=== PATIENT | male | born 1975 | race Caucasian/White ===

== ENCOUNTER 2020-03-05 02:45 | Emergency (ER) | payer BC ==
--- NOTE | 2020-03-05 03:30 | EDM.PDOC ---
ED HPI GENERAL MEDICAL PROBLEM - General Chief Complaint: ENT Problem Stated Complaint: EYE PROBLEM Time Seen by Provider: 03/05/20 03:16 Source of Information: Reports: Patient History Limitations: Reports: No Limitations - History of Present Illness INITIAL COMMENTS - FREE TEXT/NARRATIVE: TRIAGE NOTE -- Pt state was grinding on metal this afternoon about 1600 and noticed foreign body to R) eye. C/o worsening pain. pt denies vision problems. [ End ] Above. There is no additional contributory history at this point. No treatment prior to arrival. Patient is requesting anesthetic drops for eye. Right Eye Pain Score (Numeric/FACES): 8 - Related Data Allergies Allergy/AdvReac Type Severity Reaction Status Date / Time No Known Allergies Allergy Verified 03/05/20 02:55 Home Meds: Home Meds . [No Known Home Meds] 03/05/20 [History] Past Medical History Cardiovascular History: Reports: Hypertension Social & Family History - Tobacco Use Smoking Status *Q: Current Every Day Smoker Years of Tobacco use: 20 Packs/Tins Daily: 1 - Alcohol Use Days Per Week of Alcohol Use: 3 Number of Drinks Per Day: 3 Total Drinks Per Week: 9 - Recreational Drug Use Recreational Drug Use: No ED ROS ENT - Review of Systems Review Of Systems: Comprehensive ROS is negative, except as noted in HPI. ED EXAM, ENT - Physical Exam Exam: See Below Exam Limited By: No Limitations General Appearance: Alert, WD/WN, No Apparent Distress Eye Exam: Bilateral Eye: Conjunctival Injection, EOMI, PERRL Ears: Normal External Exam Nose: Normal Inspection Mouth/Throat: Normal Inspection Head: Atraumatic, Normocephalic Neck: Normal Inspection, Supple Respiratory/Chest: No Respiratory Distress, Lungs Clear Cardiovascular: Regular Rate, Rhythm GI/Abdominal: Soft, Non-Tender Extremities: Normal Inspection Neurological: Alert, Oriented, Normal Cognition, No Motor/Sensory Deficits Psychiatric: Normal Affect Skin: Warm, Dry Comments: [place] acuity, 20/20 both eyes. On fluorescein exam there is no corneal defect. No foreign body is identified. Course - Vital Signs Last Recorded V/S: Last Vital Signs Temp 36.2 C 03/05/20 02:55 Pulse 77 03/05/20 02:55 Resp 18 03/05/20 02:55 BP 153/102 H 03/05/20 02:55 Pulse Ox 97 03/05/20 02:55 - Orders/Labs/Meds Orders: Active Orders 24 hr Category Date Time Status Dexamethasone/Tobramycin [Tobradex Ophth Susp] Med 03/05/20 04:00 Ordered 2 ml EYERT Q4H Meds: Medications Discontinued Medications Generic Name Dose Route Start Last Admin Trade Name Joey PRN Reason Stop Dose Admin Fluorescein Sodium Confirm 03/05/20 03:47 Ful-Casie Administered 03/05/20 03:48 Dose 1 mg .ROUTE .STK-MED ONE Fluorescein Sodium 1 mg 03/05/20 03:56 Ful-Casie EYERT 03/05/20 03:57 ONETIME ONE - Re-Assessments/Exams Free Text/Narrative Re-Assessment/Exam: 03/05/20 04:04 The patient's right eye has been examined fully without any heath acute finding other than some generalized inflammatory changes of both eyes. No foreign body is identified. No corneal staining with fluorescein. Patient is still complaining of pain and it would be beneficial for him to see optometry or ophthalmology for a slit lamp exam. Discussed fully with patient and . Departure - Departure Time of Disposition: 04:07 Disposition: Home, Self-Care 01 Condition: Good Clinical Impression: Irritation of both eyes, Pain, eye, right Conjunctivitis Qualifiers: Conjunctivitis type: unspecified Laterality: bilateral Qualified Code(s): H10.9 - Unspecified conjunctivitis - Discharge Information *PRESCRIPTION DRUG MONITORING PROGRAM REVIEWED*: Not Applicable *COPY OF PRESCRIPTION DRUG MONITORING REPORT IN PATIENT KAR: Not Applicable Forms: ED Department Discharge Additional Instructions: You have been seen because of suspected foreign body in your right eye. Your eye has been examined the best it can be evaluated in the emergency department and no foreign body is noted. The cornea was stained with a special stain which helps us to detect any damage to the cornea which is the clear part of the eye. No deficit or defect is found on that exam. As you have pain in the eye and still a sensation of foreign body you are urged to see an eye doctor. There are manager compliance in town who can examine you with better equipment than we have in the emergency department. That needs to be done PRAVEEN. As there is possible infection or potential for infection as well as inflammation you have been given a combination antibiotic and steroid drops to use. It is noted that you are 20/20 in both eyes. If you have any problems getting access to an eye exam with an manager compliance or professor of biological sciences please return to the ER so we can assist with this. In light of the pain in the eye you also need additional evaluation that can be done by an eye doctor of any sort. Sepsis Event Note - Evaluation Sepsis Screening Result: No Definite Risk - Focused Exam Vital Signs: Vital Signs Temp Pulse Resp BP Pulse Ox 03/05/20 02:55 36.2 C 77 18 153/102 H 97 Date Exam was Performed: 03/05/20 Time Exam was Performed: 04:00 - My Orders Last 24 Hours: My Active Orders 03/05/20 04:00 Dexamethasone/Tobramycin [Tobradex Ophth Susp] 2 ml EYERT Q4H - Assessment/Plan Last 24 Hours: My Active Orders 03/05/20 04:00 Dexamethasone/Tobramycin [Tobradex Ophth Susp] 2 ml EYERT Q4H
[2020-03-05] MEDS ORDERED: Fluorescein 1 MG Ophth Strip ONE (03:47)
[2020-03-05] MEDS ORDERED: Fluorescein 1 MG Ophth Strip EYERT ONE (03:56)
[2020-03-05] MEDS ORDERED: Dexamethasone/Tobramycin 0.1-0.3% Ophth Susp 5 ML Bottle EYERT SCH (04:00)
== END 2020-03-05 04:21 | disposition home or self-care (01) ==
LOC: JD.ED 02:45
DX: H10.9 Unspecified conjunctivitis (principal); I10 Essential (primary) hypertension; F17.210 Nicotine dependence, cigarettes, uncomplicated
CPT/HCPCS: 99283; A9270

== ENCOUNTER 2020-10-25 17:04 | Emergency (ER) | payer BC ==
[2020-10-25] MEDS ORDERED: Lidocaine 1% 10 ML MDV INJECT ONE (17:54)
--- NOTE | 2020-10-25 18:15 | EDM.PDOC ---
ED HPI GENERAL MEDICAL PROBLEM - General Chief Complaint: ENT Problem Stated Complaint: NOSE INJURY Time Seen by Provider: 10/25/20 17:33 Source of Information: Reports: Patient, RN Notes Reviewed History Limitations: Reports: No Limitations - History of Present Illness INITIAL COMMENTS - FREE TEXT/NARRATIVE: Patient is a 44-year-old male who presents to the ED for the evaluation of his facial injury. The patient was seen by another provider at the [facility] for this injury, and they were concerned that there could be a deeper injury so they sent him to our ER for x-rays. Patient notes he was using a chisel with a hammer, when the chisel came back and struck him in the face. This resulted in a laceration to his right nare, that did actively start bleeding at that time. Patient had some numbness around the area initially, but notes that the numbness has gotten much better. He is not having any other facial tenderness at this point in time, he does not believe that he has any dental trauma. He did not lose consciousness, he has no blurred vision or double vision. Patient denies any other sick-like symptoms, fever/chills, cough/shortness of breath, [place]/vomiting/diarrhea. Nose Pain Score (Numeric/FACES): 2 - Related Data Allergies Allergy/AdvReac Type Severity Reaction Status Date / Time No Known Allergies Allergy Verified 10/25/20 17:17 Home Meds: Home Meds . [No Known Home Meds] 03/05/20 [History] Past Medical History Cardiovascular History: Reports: Hypertension - Infectious Disease History Infectious Disease History: Reports: None Social & Family History - Family History Family Medical History: No Pertinent Family History - Tobacco Use Tobacco Use Status *Q: Current Every Day Tobacco User Years of Tobacco use: 20 Packs/Tins Daily: 1 - Caffeine Use Caffeine Use: Reports: Soda - Recreational Drug Use Recreational Drug Use: No ED ROS ENT - Review of Systems Review Of Systems: Comprehensive ROS is negative, except as noted in HPI. ED EXAM, ENT - Physical Exam Exam: See Below Exam Limited By: No Limitations General Appearance: Alert, WD/WN, No Apparent Distress Nose: Normal Mucousa, Active Bleeding (At the site of the laceration), Dried Blood (At the site of the laceration). No: Nasal Discharge, Septal Perforation Mouth/Throat: Normal Inspection, Normal Gums, Normal Lips, Normal Oropharynx, Normal Teeth Head: Normocephalic, Facial Lacerations (Laceration noted at the right nare/nasal fold) Neck: Normal Inspection, Supple, Non-Tender, Full Range of Motion Respiratory/Chest: No Respiratory Distress, Lungs Clear, Normal Breath Sounds, No Accessory Muscle Use, Chest Non-Tender Cardiovascular: Normal Peripheral Pulses, Regular Rate, Rhythm, No Edema GI/Abdominal: Normal Bowel Sounds, Soft, Non-Tender, No Distention, No Mass Extremities: Normal Inspection, Normal Capillary Refill Neurological: Alert, Oriented, Normal Cognition, No Motor/Sensory Deficits Psychiatric: Normal Affect, Normal Mood Skin: Warm, Dry, Normal Color, No Rash, Wound/Incision (Laceration to the patient's right nare. There is quite a bit of blood in it is not been cleaned up at this time, hard to discern how large the laceration is at this time.) ED ENT PROCEDURES - Laceration/Wound Repair Right Lower Lateral Nose Lac/wound length in cm: 1 Appearance: Superficial, Linear, Clean Distal NVT: Neuro & Vascular Intact, No Tendon Injury Anesthetic Type: Local Local Anesthesia - Lidocaine (Xylocaine): 1% Plain Local Anesthetic Volume: 1cc Skin Prep: Chlorhexidine (Hibiciens), Saline Exploration/Debridement/Repair: Wound Explored, In a Bloodless Field, Explored to Base, No Foreign Material Found Suture Size: 4-0 # of Sutures: 3 Suture Type: Prolene, Interrupted, Simple Sterile Dressing Applied: Nurse Tetanus Status Addressed: Yes Complications: None Course - Vital Signs Last Recorded V/S: Last Vital Signs Temp 98.8 F 10/25/20 17:12 Pulse 87 10/25/20 17:12 Resp 18 10/25/20 17:12 BP 152/99 H 10/25/20 17:12 Pulse Ox 97 10/25/20 17:12 - Orders/Labs/Meds Orders: Active Orders 24 hr Category Date Time Status Vaccines to be Administered [RC] PER UNIT ROUTINE Care 10/25/20 18:20 Active Facial Bones Comp Min 3V [CR] Stat Exams 10/25/20 17:53 Taken Meds: Medications Discontinued Medications Generic Name Dose Route Start Last Admin Trade Name Freq PRN Reason Stop Dose Admin Diphtheria/Tetanus/Acell Pertussis 0.5 ml 10/25/20 18:20 10/25/20 18:56 Boostrix IM 10/25/20 18:21 0.5 ml .ONCE ONE Administration Lidocaine HCl 10 ml 10/25/20 17:54 10/25/20 18:58 Xylocaine 1% INJECT 10/25/20 17:55 10 ml ONETIME ONE Administration - Re-Assessments/Exams Free Text/Narrative Re-Assessment/Exam: 10/25/20 18:13 Patient presents to the ED for evaluation of his facial injury, we will get facial bone x-rays to determine if there is any sort of fracture and/or retained foreign body. Plan is to repair the patient's laceration with local anesthetic. 10/25/20 19:36 X-rays have been done, there are no signs of retained foreign body, or any sort of fracture apparent appreciated by Claudia parisi. Departure - Departure Time of Disposition: 19:32 Disposition: Home, Self-Care 01 Condition: Good Clinical Impression: Laceration of nose without foreign body Qualifiers: Encounter type: initial encounter Qualified Code(s): S01.21XA - Laceration without foreign body of nose, initial encounter - Discharge Information *PRESCRIPTION DRUG MONITORING PROGRAM REVIEWED*: No *COPY OF PRESCRIPTION DRUG MONITORING REPORT IN PATIENT KAR: No Instructions: Facial Laceration, [id number] Referrals: Prasanna Pérez MD [Primary Care Provider] - Forms: ED Department Discharge Additional Instructions: You have been evaluated in the ED for your laceration. Sutures will need to stay in for 5 to 7 days. X-rays demonstrated no foreign metal objects or fractures identified at today's visit. You may return to the ED or any clinic for removal. Please keep this area clean and dry, you may cleanse with regular soap and water. No vigorous scrubbing. Watch out for signs of infection like increased redness, swelling, pain at the laceration site, or if you should develop any fevers or chills. Please return to ED if your symptoms change or worsen. Sepsis Event Note (ED) - Evaluation Sepsis Screening Result: No Definite Risk - Focused Exam Vital Signs: Vital Signs Temp Pulse Resp BP Pulse Ox 10/25/20 17:12 98.8 F 87 18 152/99 H 97 - My Orders Last 24 Hours: My Active Orders 10/25/20 17:53 Facial Bones Comp Min 3V [CR] Stat 10/25/20 18:20 Vaccines to be Administered [RC] PER UNIT ROUTINE - Assessment/Plan Last 24 Hours: My Active Orders 10/25/20 17:53 Facial Bones Comp Min 3V [CR] Stat 10/25/20 18:20 Vaccines to be Administered [RC] PER UNIT ROUTINE
[2020-10-25] MEDS ORDERED: Diphtheria,Pertussis(Acell),Tetanus Vaccine 0.5 ML Syringe IM ONE (18:20)
--- NOTE | 2020-10-26 10:23 | CR ---
Facial Bones: 3 views of the facial bones were obtained. Visualized paranasal sinuses show nothing acute. Surrounding bony structures are intact with no discrete fracture being identified. No radiopaque foreign object is seen. Impression: 1. Nothing acute is identified on 3 view facial bone study. Diagnostic code #1 I agree with preliminary report issued by [facility] report finalized on 10/25/20, 8:21 PM LOSS MITIGATION SPECIALIST
== END 2020-10-25 19:38 | disposition home or self-care (01) ==
LOC: JD.ED 17:04
DX: S01.21XA Laceration without foreign body of nose, initial encounter (principal); I10 Essential (primary) hypertension; Z23 Encounter for immunization; W22.8XXA Striking against or struck by other objects, initial encounter
CPT/HCPCS: 12011; 70150; 90471; 90715; 99283; J2001; 99282

== ENCOUNTER 2021-04-07 19:28 | Emergency (ER) | payer BC ==
[2021-04-07] MEDS ORDERED: Sodium Chloride 0.9% 10 ML Syringe FLUSH PRN (19:45)
[2021-04-07] MEDS ORDERED: HYDROmorphone 1 MG/ML Syringe IVPUSH ONE (19:45)
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
--- NOTE | 2021-04-07 20:07 | CR ---
Left wrist: 3 views of the left wrist were obtained. Comparison: No prior studies available. Fracture is identified within the distal radius. This shows extension into the epiphysis and mild displacement. Distal ulna appears to be intact. No additional bony abnormality is appreciated. Diffuse soft tissue swelling is noted. Impression: 1. Mildly displaced distal radial fracture with articular extension. Soft tissue swelling is noted. 2. No additional abnormality is seen. Diagnostic code #3
== END 2021-04-07 20:53 | disposition home or self-care (01) ==
LOC: JD.ED 19:28
DX: S52.592A Other fractures of lower end of left radius, initial encounter for closed fracture (principal); I10 Essential (primary) hypertension; E66.9 Obesity, unspecified; Z68.30 Body mass index [BMI] 30.0-30.9, adult; Z72.0 Tobacco use; Z79.899 Other long term (current) drug therapy; V86.59XA Driver of other special all-terrain or other off-road motor vehicle injured in nontraffic accident, initial encounter
CPT/HCPCS: 29125; 73110; 96374; 99283; J1170

== ENCOUNTER 2022-02-14 13:37 | Emergency (ER) | payer BC ==
[2022-02-14] MEDS ORDERED: HYDROmorphone 1 MG/ML Syringe IM ONE (13:59)
== END 2022-02-14 14:52 | disposition home or self-care (01) ==
LOC: JD.ED 13:37
DX: S52.092A Other fracture of upper end of left ulna, initial encounter for closed fracture (principal); I10 Essential (primary) hypertension; F17.210 Nicotine dependence, cigarettes, uncomplicated; E66.9 Obesity, unspecified; Z68.31 Body mass index [BMI] 31.0-31.9, adult; W55.22XA Struck by cow, initial encounter
CPT/HCPCS: 29105; 73090; 96372; 99283; J1170

== ENCOUNTER 2022-02-19 09:59 | Day surgery (SDC) | payer BC ==
[~2022-02-19 09:59] MED LIST: Bupivacaine 0.25% 10 ML SDV ONE
[2022-02-19] MEDS ORDERED: Ondansetron 4 MG/2 ML SDV ONE (10:00)
[2022-02-19] MEDS ORDERED: fentaNYL 250 MCG/5 ML SDV ONE (10:00)
[2022-02-19] MEDS ORDERED: Dexamethasone 4 MG/ML 5 ML MDV ONE (10:00)
[2022-02-19] MEDS ORDERED: Propofol 200 MG/20 ML SDV ONE (10:00)
[2022-02-19] MEDS ORDERED: Midazolam 1 MG/ML 2 ML SDV ONE (10:00)
[2022-02-19] MEDS ORDERED: Lidocaine 1% 4 ML ONE (10:00)
[2022-02-19] MEDS ORDERED: ceFAZolin 1 GM Vial ONE (10:00)
[2022-02-19] MEDS ORDERED: Lactated Ringers 1,000 ML ONE (10:00)
[2022-02-19] MEDS ORDERED: Lidocaine 1%/Sod Bicarbonate in NS 8.4% 1 ML Syringe IDERM PRN (10:15)
[2022-02-19] MEDS ORDERED: Sodium Chloride 0.9% 10 ML Syringe FLUSH PRN (10:15)
[2022-02-19] MEDS ORDERED: Lactated Ringers 1,000 ML IV SCH (10:15)
[2022-02-19] MEDS ORDERED: Bupivacaine 0.25% 10 ML SDV ONE (12:18)
[2022-02-19] MEDS ORDERED: Ketorolac 30 MG/ML SDV ONE (12:45)
[2022-02-19] MEDS ORDERED: fentaNYL 100 MCG/2 ML SDV IVPUSH PRN (12:50)
[2022-02-19] MEDS ORDERED: HYDROmorphone 0.5 MG/0.5 ML Syringe IVPUSH PRN (12:50)
[2022-02-19] MEDS ORDERED: Ondansetron 4 MG/2 ML SDV IVPUSH PRN (12:50)
[2022-02-19] MEDS ORDERED: Labetalol 100 MG/20 ML MDV IVPUSH ONE (13:06)
[2022-02-19] MEDS ORDERED: Benazepril 10 MG Tab PO ONE (13:24)
[2022-02-19] MEDS ORDERED: hydrALAZINE 20 MG/ML SDV ONE (13:32)
[2022-02-19] MEDS: hydrALAZINE 20 MG/ML SDV IVPUSH ONE ×2 (13:34→13:49)
[2022-02-19] MEDS ORDERED: Acetaminophen/HYDROcodone 325-5 MG Tab PO PRN (13:35)
[2022-02-19] MEDS ORDERED: Cyclobenzaprine 10 MG Tab PO ONE (13:36)
[2022-02-19] MEDS ORDERED: amLODIPine 5 MG Tab PO ONE (13:45)
[2022-02-19] MEDS ORDERED: Sodium Chloride 0.9% 10 ML Syringe FLUSH SCH (21:00)
== END 2022-02-19 15:11 | disposition home or self-care (01) ==
LOC: JD.SDS 09:59
PROVIDERS: ATTEND Orthopaedic Surgery
DX: S52.202A Unspecified fracture of shaft of left ulna, initial encounter for closed fracture (principal); I10 Essential (primary) hypertension; F17.210 Nicotine dependence, cigarettes, uncomplicated; E66.9 Obesity, unspecified; Z68.30 Body mass index [BMI] 30.0-30.9, adult; X58.XXXA Exposure to other specified factors, initial encounter
CPT/HCPCS: 25545; 36415; 76000; 85610; 85730; 87641; A9270; C1713; J0360; J0690; J1100; J1170; J1885; J2250; J2405; J2704; J3010; J3490; J7120; 01830